=== PATIENT | female | born 1975 | race Caucasian/White ===

== ENCOUNTER 2021-08-17 11:34 | Emergency (ER) | payer OTHER, SELFPAY ==
[2021-08-17 11:36] VITALS: BP 129/84; PULSE 86; RESP 16; TEMP 36.1; O2SAT 99
--- NOTE | 2021-08-17 12:21 | ED.GENADULT ---
HPI - General Adult General Chief complaint: Weakness Stated complaint: headache Time Seen by Provider: 08/17/21 11:51 History of Present Illness HPI narrative: 45-year-old female presenting to the emergency department for evaluation of multiple complaints including sore throat, ear pressure, sinus pressure and generalized weakness and tiredness that is been ongoing for approximately 1 week. Patient is not vaccinated to COVID but has no known COVID exposure. Patient also does report loss of taste as well. Patient has been taking ibuprofen for symptom control. Over the course of the last few days patient states she has also developed some nausea and some stomach irritation. Patient reports she has been taking ibuprofen for a headache. Related Data Allergies Allergy/AdvReac Type Severity Reaction Status Date / Time sulfamethizole Allergy Intermediate nausea and Verified 10/15/16 11:43 hives azithromycin Allergy Unknown abd pain Verified 02/08/17 11:56 trimethoprim Allergy Unknown Verified 02/08/17 11:18 Review of Systems Review of Systems: CONSTITUTIONAL: Subjective fever EYES: Denies visual changes, redness, or discharge. ENT: See HPI CARDIOVASCULAR: Denies chest pain, palpitations, or edema. RESPIRATORY: Denies cough or dyspnea. GASTROINTESTINAL: Nausea and left upper quadrant stomach irritation GENITOURINARY: Denies dysuria or hematuria. SKIN: Denies rash or itching. MUSCULOSKELETAL: Denies back pain, joint pain, or myalgia. NEUROLOGIC: Headache but denies any associated numbness or weakness. [facility] Surgical History Surgical History (Updated 05/13/21 @ 13:53 by Lisa Sexton MA) H/O colposcopy with cervical biopsy 02/21/2020 History of gynecological procedure Mirena Iud insertion - 2007 Mirena Iud removal - 07/17/2012 Family History Family History (Updated 02/08/17 @ 11:22 by DOCTOR UNKNOWN) Sibling Hypertension Mother Family history of malignant neoplasm of ovary Social History Social History Smoking status: Never smoker Second hand tobacco smoke exposure: Yes Alcohol intake: current Exam Narrative: APPEARANCE: Well appearing, no pain, no distress, well-nourished. HEAD: normocephalic, atraumatic. Frontal and maxillary sinus tenderness to palpation. EYES: PERRLA/EOMI, conjunctivae clear. NOSE: Normal no drainage EARS:TMS clear with good light reflex. THROAT: Pharynx clear, no exudate. NECK: Supple. No adenopathy, no masses. RESPIRATORY: Airway patent, respirations nonlabored. Clear to auscultation bilaterally, no rales, rhonchi, wheezing. CARDIOVASCULAR: Regular rate and rhythm without murmurs rubs or gallops. ABDOMINAL: Soft nondistended, some left upper quadrant tenderness to palpation. MUSCULOSKELETAL: Moves all extremities. Strength/ROM intact, No edema, No calf tenderness. NEURO: Alert. Cranial nerves II through XII intact. Grossly intact. No meningeal signs SKIN: Warm, dry. Normal Color Course Course Emergency Course: Patient was positive for COVID. Patient was given Protonix for gastritis symptoms. Patient and family were updated on the diagnosis and treatment plan for home. She was also encouraged on reasons to return to the emergency department and on importance of close follow-up with her primary care physicians. All questions and concerns were addressed. Vital Signs Vital signs: Vital Signs Temperature 97.0 F L 08/17/21 11:36 Pulse Rate 86 08/17/21 11:36 Respiratory Rate 16 08/17/21 11:36 Blood Pressure 129/84 08/17/21 11:36 Pulse Oximetry 99 08/17/21 11:36 Oxygen Delivery Room Air 08/17/21 11:36 Temperature 97.0 F L 08/17/21 11:36 Pulse Rate 74 08/17/21 14:11 Respiratory Rate 17 08/17/21 14:11 Blood Pressure 118/70 08/17/21 14:11 Pulse Oximetry 99 08/17/21 14:11 Oxygen Delivery Room Air 08/17/21 11:36 Medical Decision Making Vital Signs Vital Signs: Vital Signs Temperature 97.0 F L 08/17/21 11:36 Pulse
[2021-08-17] MEDS: PANTOPRAZOLE 40 MG TABLET PO (12:37)
[2021-08-17] MEDS: ONDANSETRON HCL ODT 4 MG TABLET PO (12:38)
[2021-08-17 13:24] LABS: Influenza A QL RT-PCR Negative (Negative); Influenza B QL RT-PCR Negative (Negative); SARS-CoV-2 RNA PCR Positive
[2021-08-17] MEDS: KETOROLAC 30 MG/ML VIAL (*BKC) IM (14:07)
[2021-08-17 14:11] VITALS: BP 118/70; PULSE 74; RESP 17; O2SAT 99
== END 2021-08-17 14:13 | disposition home or self-care (01) ==
PROVIDERS: Emergency Provider Emergency Medicine
DX: U07.1 COVID-19 (principal); Z28.310 Unvaccinated for COVID-19
CPT/HCPCS: 87081; 87502; 87880; 96372; 99283; A9270; C9803; J1885; U0003; U0005

== ENCOUNTER 2024-03-01 16:24 | Outpatient (CLI) | payer OTHER, SELFPAY ==
--- NOTE | ~2024-03-01 | MM_ITS ---
EXAMINATION: MM screening [facility] BI w mykel HISTORY: Screening TECHNIQUE: Craniocaudal and mediolateral oblique 3-D tomosynthesis images were obtained and synthetic 2-D images were generated. CAD analysis was submitted and interpreted. COMPARISON: 02/27/2015 BREAST PARENCHYMAL COMPOSITION: Dense: The breasts are extremely dense, which lowers the sensitivity of mammography. FINDINGS: The left breast is stable without evidence for malignancy. There is a new mass in the upper outer quadrant of the right breast, middle third. IMPRESSION: 1. New right breast mass, upper outer quadrant, middle third. 2. Additional mammographic views and possible breast ultrasound are recommended. BI-RADS Category 0: Incomplete: Needs additional imaging evaluation. Reviewed, dictated and finalized at location B. GE PLANT OPERATOR IMPRESSION: 1. New right breast mass, upper outer quadrant, middle third. 2. Additional mammographic views and possible breast ultrasound are recommended . BI-RADS Category 0: Incomplete: Needs additional imaging evaluation.
== END 2024-03-01 16:25 | disposition home or self-care (01) ==
PROVIDERS: Visit Provider Obstetrics & Gynecology
DX: Z12.31 Encounter for screening mammogram for malignant neoplasm of breast (principal); N63.11 Unspecified lump in the right breast, upper outer quadrant
CPT/HCPCS: 77063; 77067

== ENCOUNTER 2024-03-22 13:26 | Outpatient (CLI) | payer OTHER, SELFPAY ==
--- NOTE | ~2024-03-22 | MMUS_ITS ---
EXAMINATION: MM diagnostic nat RT w mykel, US breast RT limited HISTORY: Right breast mass TECHNIQUE: Additional 3-D tomosynthesis images of the right breast were performed and synthetic 2-D i mages were generated. CAD analysis was submitted and interpreted. High resolution limited right breas t ultrasound was performed. COMPARISON: 03/01/2024 BREAST PARENCHYMAL COMPOSITION:Dense: The breasts are extremely dense, which lowers the sensitivity o f mammography. FINDINGS: MAMMOGRAPHIC FINDINGS: Questionable 7 mm persistent low-density mass at the upper, outer right breast. No suspicious appeari ng mass or distortion. ULTRASOUND: In the upper, outer right breast, there are 3 simple cysts identified. Largest measures 8 x 7 x 4 mm at the 10:00 position, 1 cm from the nipple. Additional 8 x 7 x 5 mm cyst present at the 11:00 positi on, 2 cm from the nipple. Additional 5 mm cyst present at the 9:00 position near the nipple. IMPRESSION: No evidence for malignancy. Subcentimeter cysts in the upper, outer right breast, as detailed above. BI-RADS Category 2: Benign finding(s). Reviewed, dictated and finalized at location M. CTOR [place] IMPRESSION: No evidence for malignancy. Subcentimeter cysts in the upper, outer right [address], as detailed above. BI-RADS Category 2: Benign finding(s).
== END 2024-03-22 13:27 | disposition home or self-care (01) ==
PROVIDERS: Visit Provider Obstetrics & Gynecology
DX: N60.11 Diffuse cystic mastopathy of right breast (principal); R92.8 Other abnormal and inconclusive findings on diagnostic imaging of breast
CPT/HCPCS: 76642; 77061; 77065; G0279

== ENCOUNTER 2024-05-02 16:57 | Emergency (ER) | payer OTHER, SELFPAY ==
--- NOTE | ~2024-05-02 | US_ITS ---
EXAM: PELVIC ULTRASOUND HISTORY: vaginal hemorrhage COMPARISON: . None FINDINGS: UTERUS: 8.3 x 4.2 x 5.4 cm. Coarse echogenicity identified throughout the uterus, a nonspecific finding. No linear striations are identified to suggest adenomyosis. The endometrial complex measures 4 mm. Multiple cysts within the cervix, of varying sizes the largest measuring 14 x 18 x 16 mm. RIGHT OVARY: The right ovary is unremarkable in echogenicity and size measuring 4.4 x 2.2 x 1.9 cm. Dopplerable flow is identified. LEFT OVARY: The left ovary is unremarkable in size measuring 3.1 x 2.8 x 3.0 cm Dopplerable flow is identified. Within the left ovary, is a well-circumscribed focus of mixed echogen icity. It contains lacelike reticular echoes without a fluid/fluid level. No flow on Doppler interrogation w ithin this area. Circumferential blood flow in the wall is noted. This finding is most consistent wit h a hemorrhagic cyst for which follow-up with ultrasound in 6-8 weeks is recommended. An additional focus of abnormal echogenicity is identified within the left ovary measuring 9 x 17 x 1 0 mm demonstrating increased echogenicity and posterior acoustic shadowing suggesting calcification. Surgical consultation is recommended. No free fluid is identified within the pelvis. IMPRESSION: Findings within the left ovary for which a hemorrhagic cyst is suspected for which ultrasound follow- up in 6-8 weeks is recommended. An additional smaller area of dense calcifications is also noted for which PHYSICIAN NEONATOLOGY surgical consultation is recommended. Of note, a plain radiograph of the pelvis was performed in 2011 as part of a lumbar spine evaluation which did NOT demonstrate any calcifications within the left hemipelvis. Multiple nabothian cysts within the cervix, as detailed above. Reviewed, dictated and finalized at location A. OOD AND SERVICE MEAT MANAGER IMPRESSION: Findings within the left ovary for which a hemorrhagic cyst is suspected for [facility] ultrasound follow-up in 6-8 weeks is recommended. An additional smaller area of dense calcifications is also noted for which PHYSICIAN NEONATOLOGY surgical consultation is recommended. Of note, a plain radiograph of the pelvis was performed in 2011 as part of a sina mbar spine evaluation which did NOT demonstrate any calcifications within the l eft hemipelvis. Multiple nabothian cysts within the cervix, as detailed above.
[2024-05-02 16:59] VITALS: BP 144/95; PULSE 83; RESP 16; TEMP 36.5; O2SAT 100
--- OUTSIDE RECORDS SUMMARY | 2024-05-02 16:59 | XMS_ITS | Referral Summary ---
Author Organization [email or web address] Address [address] [place] [address] Care Team Providers Care Microsoft Developer Name Role Phone Emmy Dallas MD Primary Care Provider Source Comments [email or web address],non-owned Affiliates and Associated Physician Practices is amultiple site organization consisting of ambulatory clinics and hospital sitesin [place], [place], [place] and [place]. This disclosure is being madepursuant to the Care Everywhere program and may not contain all information available regarding this patient. Last updated 17.[email or web address] Allergies No known active allergies Medications * Be aware that medications may not be up to date on this document. Alwaysverify current medications with the patient. Medication Sig Dispensed Refills Start Date End Date Status acyclovir (ZOVIRAX) 200 MG capsule Take 200 mg by mouth 5 times daily while awake Active albuterol HFA (VENTOLIN HFA) 108 (90 BASE) MCG/ACT inhalerIndications:Ac pushpa bronchitis, unspecified organism Inhale 2 puffs by mouth every 6 hours as needed for Wheezing or Cough 1 Inhaler 01/24/2017 Active fluticasone propionate (FLONASE) 50 MCG/ACT nasal sprayIndications:Acut e sinusitis, recurrence not specified, unspecified location D[place] 2 sprays into each nostril once daily 1 bottles 01/24/2017 Active Social History Tobacco Use Types Packs/Day Years Used Date Smoking Tobacco: Never Assessed Sex and Gender Information Value Date Recorded Sex Assigned at Not on file Gender Identity Not on file Sexual Orientation Not on file Last Filed Vital Signs Vital Sign Reading Time Taken Comments Blood Pressure 118/70 01/24/2017 11:41 AM CRANE SERVICE TECHNICIAN Pulse 88 01/24/2017 11:41 AM CRANE SERVICE TECHNICIAN Temperature 37.3 C (99.1 F) 01/24/2017 11:41 AM CRANE SERVICE TECHNICIAN Respiratory Rate 17 01/24/2017 11:41 AM CRANE SERVICE TECHNICIAN Oxygen Saturation 99% 01/24/2017 11:41 AM CRANE SERVICE TECHNICIAN Inhaled Oxygen Concentration - - Weight 49.9 kg (110 lb) 01/24/2017 11:41 AM CRANE SERVICE TECHNICIAN Height 160 cm (5' 3 ) 01/24/2017 11:41 AM CRANE SERVICE TECHNICIAN Body Mass Index 19.49 01/24/2017 11:41 AM CRANE SERVICE TECHNICIAN Plan of Treatment Not on file Care Teams Microsoft Developer Relationship Specialty Start Date End Date Emmy Dallas MD PCP - General Family Medicine 03/24/16
--- OUTSIDE RECORDS SUMMARY | 2024-05-02 16:59 | XMS_ITS | Clinical Summary ---
Author Organization [facility] Address [address] [place] [address] Care Team Providers Care Loan Auditor Name Role Phone Emmy aDllas MD Primary Care Provider [phone] Source Comments [facility],non-owned Affiliates and Associated Physician Practices is amultiple site organization consisting of ambulatory clinics and hospital sitesin [place], [place], [place] and [place]. This disclosure is being madepursuant to the Care Everywhere program and may not contain all information available regarding this patient. Last updated 17.[facility] Allergies No known active allergies Medications * [...] e sinusitis, recurrence not specified, unspecified location [place] 2 sprays into each nostril once daily 1 bottles 01/24/2017 Active Social History Tobacco Use Types Packs/Day Years Used Date Smoking Tobacco: Never Assessed Sex and Gender Information Value Date Recorded Sex Assigned at Not on file Gender Identity Not on file Sexual Orientation Not on file Last Filed Vital Signs Vital Sign Reading Time Taken Comments Blood Pressure 118/70 01/24/2017 11:41 AM FUR REPAIRER Pulse 88 01/24/2017 11:41 AM FUR REPAIRER Temperature 37.3 C (99.1 F) 01/24/2017 11:41 AM FUR REPAIRER Respiratory Rate 17 01/24/2017 11:41 AM FUR REPAIRER Oxygen Saturation 99% 01/24/2017 11:41 AM FUR REPAIRER Inhaled Oxygen Concentration - - Weight 49.9 kg (110 lb) 01/24/2017 11:41 AM FUR REPAIRER Height 160 cm (5' 3 ) 01/24/2017 11:41 AM FUR REPAIRER Body Mass Index 19.49 01/24/2017 11:41 AM FUR REPAIRER Plan of Treatment Health Maintenance Due Date Last Done Comments COLOGUARD (AGES 45-75) - COL ON CA SCREENING 1976 COLON MONITORING 1976 COLONOSCOPY - COLON CA SCREENING 1976 CT COLONOGRAPHY - COLON CA SCREENING 1976 Colorectal Cancer Screening 1976 FIT - COLON CA SCREENING 1976 FLEX SIG - COLON CA SCREENING 1976 LIPID TESTING 1976 MAMMOGRAM 1976 PAP SMEAR 1976 HIV SCREENING 10/10/1991 HEPATITIS C SCREENING 10/05/1994 DTAP/TDAP/TD VACCINES (1 - Tdap) 10/10/1995 HEPATITIS B VACCINE (1 of 3 - 19+ 3-dose series) 10/10/1995 COVID-19 VACCINE ( - 2023-2 5 season) 2023 INFLUENZA VACCINE (#1) 2023 DEPRESSION SCREENING 03/21/2024 ZOSTER VACCINE (1 of 2) 2026 HIB VACCINE Aged Out No longer eligi ble based on patient's age to complete this topic HPV VACCINE Aged Out No longer eligi ble based on patient's age to complete this topic MENINGOCOCCAL (Group B) VACCINE Aged Out No longer eligible based on patient's age to complete this topic MENINGOCOCCAL VACCINE Aged Out No abdon puja eligible based on patient's age to complete this topic PNEUMOCOCCAL VACCINE Aged Out No long er eligible based on patient's age to complete this topic Care Teams Loan Auditor Relationship Specialty Start Date End Date Emmy Dallas MD PCP - General Family Medicine 03/24/16
--- OUTSIDE RECORDS SUMMARY | 2024-05-02 16:59 | XMS_ITS | Patient Health Summary ---
Author Organization [facility] Address [address] [place] [address] Care Team Providers Care Refinisher Name Role Phone Emmy Dallas MD Primary Care Provider [phone] Note from [facility],non-owned Affiliates and Associated Physician Practices is amultiple site organization consisting of ambulatory clinics and hospital sitesin [place], [place], [place] and [place]. This disclosure is being madepursuant to the Care Everywhere program and may not contain all information available regarding this patient. Last updated 17.[facility] Allergies No known active allergies Medications * Be aware that medications may not be up to date on this document. Alwaysverify current medications with the patient. * acyclovir (ZOVIRAX) 200 MG capsule Take 200 mg by mouth 5 times daily while awake * albuterol HFA (VENTOLIN HFA) 108 (90 BASE) MCG/ACT inhaler(Started 01/24/2017) Inhale 2 puffs by mouth every 6 hours as needed for Wheezing or Cough * fluticasone propionate (FLONASE) 50 MCG/ACT nasal spray(Started 01/24/2017) [place] 2 sprays into each nostril once daily Social History Tobacco Use Types Packs/Day Years Used Date Smoking Tobacco: Never Assessed Sex and Gender Information Value Date Recorded Sex Assigned at Not on file Gender Identity Not on file Sexual Orientation Not on file Last Filed Vital Signs Vital Sign Reading Time Taken Comments Blood Pressure 118/70 01/24/2017 11:41 AM CHEMICAL TREATMENT OPERATOR Pulse 88 01/24/2017 11:41 AM CHEMICAL TREATMENT OPERATOR Temperature 37.3 C (99.1 F) 01/24/2017 11:41 AM CHEMICAL TREATMENT OPERATOR Respiratory Rate 17 01/24/2017 11:41 AM CHEMICAL TREATMENT OPERATOR Oxygen Saturation 99% 01/24/2017 11:41 AM CHEMICAL TREATMENT OPERATOR Inhaled Oxygen Concentration - - Weight 49.9 kg (110 lb) 01/24/2017 11:41 AM CHEMICAL TREATMENT OPERATOR Height 160 cm (5' 3 ) 01/24/2017 11:41 AM CHEMICAL TREATMENT OPERATOR Body Mass Index 19.49 01/24/2017 11:41 AM CHEMICAL TREATMENT OPERATOR Care Teams Refinisher Relationship Specialty Start Date End Date Emmy Dallas MD PCP - General Family Medicine 03/24/16
--- NOTE | 2024-05-02 18:21 | ED.FEMALEGU ---
HPI - Female Genitourinary General Chief complaint: Vaginal Bleeding <Ioana Garcia PA-C - Last Filed: 05/03/24 17:03> Stated complaint: vaginal bleeding <Ioana Garcia PA-C - Last Filed: 05/03/24 17:03> Time Seen by Provider: 05/02/24 17:09 <Ioana Garcia PA-C - Last Filed: 05/03/24 17:03> Focused HPI: Patient is a 48 y/o female who presents to the ED with c/o abnormal vaginal bleeding. Patient reports she started her normal cycle started on Tuesday. She typically has heavy cycles but states the bleeding was even heavier than usual. States typically bleeding will decreased by 3rd day of cycle, but the heavy bleeding has since persisted. States any time she stands up, she feels a gush of blood. Has been going through a pad and tampon per hour. Contacted her OBGYN and was seen in the office today. Had a pelvic exam performed and was referred to the ED for further evaluation. They discussed possible D&C. Reports dizziness/lightheadedness since yesterday. Also reports increased lower abdominal cramping, nausea. Denies vomiting, fevers. GENERAL: Well-appearing, thin, and in no acute distress. HEAD: Normocephalic, atraumatic. CHEST: Clear to auscultation. ?No respiratory distress. HEART: Regular rate and rhythm.? NEURO: ?Alert and oriented x3. Patient screened in triage and initial orders placed.? ?Additional care and disposition to be based upon?diagnostic testing and treatment. <Ioana Garcia PA-C - Last Filed: 05/03/24 17:03> Source: patient <Ioana Garcia PA-C - Last Filed: 05/03/24 17:03> Mode of arrival: ambulatory <Ioana Garcia PA-C - Last Filed: 05/03/24 17:03> Limitations: no limitations <Ioana Garcia PA-C - Last Filed: 05/03/24 17:03> History of Present Illness HPI Narrative: per hpi <Yoko Stevenson MD - Last Filed: 05/03/24 17:26> Related Data Home medications: Home Medications ?Medication ?Instructions ?Recorded ?Confirmed ?Last Taken ?Type valacyclovir 500 mg tablet mg PO 12/07/23 05/03/24 Unknown History <Ioana Garcia PA-C - Last Filed: 05/03/24 17:03> Allergies/Adverse reactions: Allergies Allergy/AdvReac Type Severity Reaction Status Date / Time sulfamethizole Allergy Intermediate nausea and Verified 05/03/24 14:09 hives azithromycin Allergy Unknown abd pain Verified 05/03/24 14:09 trimethoprim Allergy Unknown Diarrhea Verified 05/03/24 14:09 <Ioana Garcia PA-C - Last Filed: 05/03/24 17:03> Review of Systems Review of Systems: All systems reviewed & are unremarkable except as noted in HPI and below <Yoko Stevenson MD - Last Filed: 05/03/24 17:26> PMFSH Past Medical History Medical History: Medical History Breast mass, right <Ioana Garcia PA-C - Last Filed: 05/03/24 17:03> Surgical History Surgical History: Surgical History H/O colposcopy with cervical biopsy 02/21/2020 History of gynecological procedure Mirena Iud insertion - 2007 Mirena Iud removal - 07/17/2012 <NIDHI Zuniga Last Filed: 05/03/24 17:03> Family History Family History: Family History Sibling Hypertension Mother Family history of malignant neoplasm of ovary <Ioana Garcia PA-C - Last Filed: 05/03/24 17:03> Social History Social History: Social History Smoking packs per day: 0.5 Smoking cigarettes per day: 10.0 Years smoked: 10 Smoking pack-years: 5.00 Smoking status: Current some day smoker Tobacco type: cigarettes Second hand tobacco smoke exposure: Yes Alcohol intake: current Substance use: never Substance use type: does not use Lack of Transportation: No Lack of Food: Never True Current Housing: I Have Housing Concerned About Future Housing: No Difficulty Paying Gas/Electric Bills: No Difficulty Paying for Meds: No Currently Unemployed: No Education: High School Diploma/GED Difficulty w/ Childcare or Family Care: No Living arrangements: with family Occupation/Education: occupation Gender identity (if verbalized by the patient): Female Sexual Orientation (if Verbalized by the Patient): Straight or Heterosexual <Ioana Garcia PA-C - Last Filed: 05/03/24 17:03> Exam Narrative: EXAMINATION OF ORGAN SYSTEMS/BODY AREAS: Constitutional: Vital signs per nursing GENERAL:[No acute distress, non-toxic appearing.] HEAD: Normal with no signs of head trauma. EYES: EOMI, conjunctiva normal ENT: Hearing grossly intact LUNGS: Nonlabored breathing. HEART: [Regular rate and rhythm] ABD: [Soft], [nontender to palpation] EXT: Normal range of motion SKIN: [No rashes or lesions.] NEURO: [Alert and oriented x 3. No gross focal sensory or strength deficits.] PSYCH: Normal affect <Yoko Stevenson MD - Last Filed: 05/03/24 17:26> Course Vital Signs Vital signs: Vital Signs Temperature 97.7 F 05/02/24 16:59 Pulse Rate 83 05/02/24 16:59 Respiratory Rate 16 05/02/24 16:59 Blood Pressure 144/95 H 05/02/24 16:59 Pulse Oximetry 100 05/02/24 16:59 Oxygen Delivery Room Air 05/02/24 16:59 Temperature 97.7 F 05/02/24 16:59 Pulse Rate 81 05/02/24 19:21 Respiratory Rate 20 05/02/24 19:21 Blood Pressure 144/95 H 05/02/24 16:59 Pulse Oximetry 100 05/02/24 19:21 Oxygen Delivery Room Air 05/02/24 16:59 <Ioana Garcia PA-C - Last Filed: 05/03/24 17:03> Vital Signs Temperature 97.7 F 05/02/24 16:59 Pulse Rate 83 05/02/24 16:59 Respiratory Rate 16 05/02/24 16:59 Blood Pressure 144/95 H 05/02/24 16:59 Pulse Oximetry 100 05/02/24 16:59 Oxygen Delivery Room Air 05/02/24 16:59 Temperature 97.7 F 05/02/24 16:59 Pulse Rate 81 05/02/24 19:21 Respiratory Rate 20 05/02/24 19:21 Blood Pressure 144/95 H 05/02/24 16:59 Pulse Oximetry 100 05/02/24 19:21 Oxygen Delivery Room Air 05/02/24 16:59 <Yoko Stevenson MD - Last Filed: 05/03/24 17:26> MDM - Female Genitourinary MDM Narrative Medical decision making narrative: MSE by BARTOLO in triage. <Ioana Garcia PA-C - Last Filed: 05/03/24 17:03> MSE by BARTOLO in triage. Labs and US reassuring, d/w OBGYN will start provera and close f/u with return precautions, stable for dc. Pt/family agreeable. DC in NAD <Yoko Stevenson MD - Last Filed: 05/03/24 17:26> Lab Data Result diagrams: 05/02/24 18:27 05/02/24 18:27 <Ioana Garcia PA-C - Last Filed: 05/03/24 17:03> Labs: Lab Results 05/02/24 Range/Units 18:27 WBC 10.9 H (4.5-10.0) K/mm3 RBC 5.08 (4.2-5.4) M/mm3 Hgb 15.5 H (12.0-15.0) g/dL Hct 48.3 H (37.0-47.0) % MCV 95.1 (80-100) fl MCH 30.5 (26-34) pg MCHC 32.1 (32-36) g/dl RDW 13.7 (11.5-14.5) % Plt Count 299 (150-375) k/mm3 MPV 10.3 (7.4-10.4) fl Immature Gran % (Auto) 0.6 H (0-0.5) % Neut % (Auto) 68.1 (45.5-73.1) % Lymph % (Auto) 23.4 (18.3-44.2) % [place] % (Auto) 6.7 (2.6-8.5) % Eos % (Auto) 0.5 (0-4.4) % Baso % (Auto) 0.7 (0.2-1.2) % Lymph # (Auto) 2.56 (0.9-3.2) K/mm3 [place] # (Auto) 0.7 H (0.1-0.6) K/mm3 Eos # (Auto) 0.1 (0-0.3) K/mm3 Baso # (Auto) 0.1 (0.0-0.1) K/mm3 Abs Immat Gran (auto) 0.07 H (0.00-0.031) K/mm3 Absolute Neuts (auto) 7.4 H (1.3-6.7) K/mm3 Absolute Nucleated RBC 0.000 (0.0-0.012) K/mm3 Nucleated RBC % 0.0 (0.0-0.2) % PT 12.7 (11.1-14.7) Seconds INR 0.9 APTT 30.6 (22.3-36.8) Seconds Sodium 142 (137-145) mmol/L Potassium 4.2 (3.4-5.0) mmol/L Chloride 103 (98-107) mmol/L Carbon Dioxide 28 (22-30) mmol/L Anion Gap 11 (4-12) mmol/L BUN 11 (7-17) mg/dL Creatinine 0.68 L (0.7-1.0) mg/dL Estim Creat Clear Calc 71 ml/min Estimated GFR > 60 (59 - ) Glucose 93 (65-110) mg/dL Calcium 10.1 (8.4-10.2) mg/dL Blood Type B Positive Antibody Screen Negative <Ioana Garcia PA-C - Last Filed: 05/03/24 17:03> Lab Results 05/02/24 Range/Units 18:27 WBC 10.9 H (4.5-10.0) K/mm3 RBC 5.08 (4.2-5.4) M/mm3 Hgb 15.5 H (12.0-15.0) g/dL Hct 48.3 H (37.0-47.0) % MCV 95.1 (80-100) fl MCH 30.5 (26-34) pg MCHC 32.1 (32-36) g/dl RDW 13.7 (11.5-14.5) % Plt Count 299 (150-375) k/mm3 MPV 10.3 (7.4-10.4) fl Immature Gran % (Auto) 0.6 H (0-0.5) % Neut % (Auto) 68.1 (45.5-73.1) % Lymph % (Auto) 23.4 (18.3-44.2) % [place] % (Auto) 6.7 (2.6-8.5) % Eos % (Auto) 0.5 (0-4.4) % Baso % (Auto) 0.7 (0.2-1.2) % Lymph # (Auto) 2.56 (0.9-3.2) K/mm3 [place] # (Auto) 0.7 H (0.1-0.6) K/mm3 Eos # (Auto) 0.1 (0-0.3) K/mm3 Baso # (Auto) 0.1 (0.0-0.1) K/mm3 Abs Immat Gran (auto) 0.07 H (0.00-0.031) K/mm3 Absolute Neuts (auto) 7.4 H (1.3-6.7) K/mm3 Absolute Nucleated RBC 0.000 (0.0-0.012) K/mm3 Nucleated RBC % 0.0 (0.0-0.2) % PT 12.7 (11.1-14.7) Seconds INR 0.9 APTT 30.6 (22.3-36.8) Seconds Sodium 142 (137-145) mmol/L Potassium 4.2 (3.4-5.0) mmol/L Chloride 103 (98-107) mmol/L Carbon Dioxide 28 (22-30) mmol/L Anion Gap 11 (4-12) mmol/L BUN 11 (7-17) mg/dL Creatinine 0.68 L (0.7-1.0) mg/dL Estim Creat Clear Calc 71 ml/min Estimated GFR > 60 (59 - ) Glucose 93 (65-110) mg/dL Calcium 10.1 (8.4-10.2) mg/dL Blood Type B Positive Antibody Screen Negative <Yoko Stevenson MD - Last Filed: 05/03/24 17:26> Discharge Plan Discharge Clinical Impression: Vaginal bleeding <Ioana Garcia PA-C - Last Filed: 05/03/24 17:03> Patient Disposition: Home, Self-Care <Ioana Garcia PA-C - Last Filed: 05/03/24 17:03> Condition: Stable <NIDHI Zuniga Last Filed: 05/03/24 17:03> Instructions: Menorrhagia (ED) <Ioana Garcia PA-C - Last Filed: 05/03/24 17:03> Additional Instructions: Please start the progestin pills and follow-up with your OBGYN in the next 2-3 days, if your bleeding worsens or if you start having any concerning symptoms such as shortness of breath or lightheadedness, please come back to the emergency room immediately. <Ioana Garcia PA-C - Last Filed: 05/03/24 17:03> Patient Language: Bruneian <Ioana Garcia PA-C - Last Filed: 05/03/24 17:03> Prescriptions: New medroxyprogesterone [Provera] 10 mg tablet 20 mg PO DAILY 10 Days Qty: 20 0RF No Action medroxyprogesterone [Provera] 10 mg tablet 10 mg PO BID Qty: 60 0RF valacyclovir 500 mg tablet PO <Ioana Garcia PA-C - Last Filed: 05/03/24 17:03> Follow-up/Referrals: Marianela Graham MD [Physician] - 2 Days PHYSICIAN NOT ON STAFF,NONSTAFF [Primary Care Provider] - <NIDHI Zuniga Last Filed: 05/03/24 17:03>
[2024-05-02 18:34] LABS: Basophils Absolute Auto 0.1 K/mm3 (0.0-0.1); Basophils Percent Auto 0.7 % (0.2-1.2); Eosinophils Absolute Auto 0.1 K/mm3 (0-0.3); Eosinophils Percent Auto 0.5 % (0-4.4); Hematocrit 48.3 % (37.0-47.0); Hemoglobin 15.5 g/dL (12.0-15.0); Immature Granulocyte Absolute 0.07 K/mm3 (0.00-0.031); Immature Granulocyte Percent A 0.6 % (0-0.5); Lymphocytes Absolute Auto 2.56 K/mm3 (0.9-3.2); Lymphocytes Percent Auto 23.4 % (18.3-44.2); Mean Corpuscular HGB Conc 32.1 g/dl (32-36); Mean Corpuscular Hemoglobin 30.5 pg (26-34); Mean Corpuscular Volume 95.1 fl (80-100); Mean Platelet Volume 10.3 fl (7.4-10.4); Monocytes Absolute Auto 0.7 K/mm3 (0.1-0.6); Monocytes Percent Auto 6.7 % (2.6-8.5); Neutrophils Absolute Auto 7.4 K/mm3 (1.3-6.7); Neutrophils Percent Auto 68.1 % (45.5-73.1); Platelet Count Result 299 k/mm3 (150-375); Red Blood Count 5.08 M/mm3 (4.2-5.4); Red Cell Distribution Width 13.7 % (11.5-14.5); White Blood Count 10.9 K/mm3 (4.5-10.0)
[2024-05-02 18:42] LABS: Anion Gap 11 mmol/L (4-12); Blood Urea Nitrogen 11 mg/dL (7-17); Calcium 10.1 mg/dL (8.4-10.2); Carbon Dioxide 28 mmol/L (22-30); Chloride 103 mmol/L (98-107); Estimated CRCL calculation 71 ml/min; Estimated Glomerular Filt Rate > 60; Glucose 93 mg/dL (65-110); Potassium 4.2 mmol/L (3.4-5.0); Sodium 142 mmol/L (137-145)
[2024-05-02 18:51] LABS: INR 0.9; Prothrombin Time 12.7 Seconds (11.1-14.7)
[2024-05-02 18:52] LABS: Partial Thromboplastin Time 30.6 Seconds (22.3-36.8)
[2024-05-02] MEDS: SODIUM CHLORIDE 0.9% IV 1,000 ML 999 ML IV CONT (19:08)
[2024-05-02] MEDS: ONDANSETRON INJ 4 MG/2 ML VIAL IV PUSH (19:09)
[2024-05-02] MEDS: TRANEXAMIC ACID 1,000 MG/10 ML AMPUL 500 MG IV PUSH (19:11)
--- OUTSIDE RECORDS SUMMARY | 2024-05-02 19:15 | XMS_ITS | Patient Health Summary ---
Author Organization [facility] Address [address] [place] [address] Care Team Providers Care Fuel Cell Technician Name Role Phone Emmy Dallas MD Primary Care Provider [phone] [facility],non-owned Affiliates and Associated Physician Practices is amultiple site organization consisting of ambulatory clinics and hospital sitesin [place], [place], [place] and [place]. This disclosure is being madepursuant to the Care Everywhere program and may not contain all information available regarding this patient. Last updated 17.[facility] Allergies No known active allergies Medications [...] propionate (FLONASE) 50 MCG/ACT nasal spray(Started 01/24/2017) [place] 2 sprays into each nostril once daily Social History Tobacco Use Types Packs/Day Years Used Date Smoking Tobacco: Never Assessed Sex and Gender Information Value Date Recorded Sex Assigned at Not on file Gender Identity Not on file Sexual Orientation Not on file Last Filed Vital Signs Vital Sign Reading Time Taken Comments Blood Pressure 118/70 01/24/2017 11:41 AM DRESSAGE JUDGE Pulse 88 01/24/2017 11:41 AM DRESSAGE JUDGE Temperature 37.3 C (99.1 F) 01/24/2017 11:41 AM DRESSAGE JUDGE Respiratory Rate 17 01/24/2017 11:41 AM DRESSAGE JUDGE Oxygen Saturation 99% 01/24/2017 11:41 AM DRESSAGE JUDGE Inhaled Oxygen Concentration - - Weight 49.9 kg (110 lb) 01/24/2017 11:41 AM DRESSAGE JUDGE Height 160 cm (5' 3 ) 01/24/2017 11:41 AM DRESSAGE JUDGE Body Mass Index 19.49 01/24/2017 11:41 AM DRESSAGE JUDGE Care Teams Fuel Cell Technician Relationship Specialty Start Date End Date Emmy Dallas MD PCP - General Family Medicine 03/24/16
--- OUTSIDE RECORDS SUMMARY | 2024-05-02 19:15 | XMS_ITS | Clinical Summary ---
Author Organization [facility] Address [address] [place] [address] Care Team Providers Care Oyster Shucker Name Role Phone Emmy Dallas MD Primary Care Provider [phone] Source Comments [facility],non-owned Affiliates and Associated Physician Practices is amultiple site organization consisting of ambulatory clinics and hospital sitesin [place], [place], [place] and [place]. This disclosure is being madepursuant to the Care Everywhere program and may not contain all information available regarding this patient. Last updated 17.[facility] Allergies No known active allergies Medications * [...] e sinusitis, recurrence not specified, unspecified location [place] 2 sprays into each nostril once daily 1 bottles 01/24/2017 Active Social History Tobacco Use Types Packs/Day Years Used Date Smoking Tobacco: Never Assessed Sex and Gender Information Value Date Recorded Sex Assigned at Not on file Gender Identity Not on file Sexual Orientation Not on file Last Filed Vital Signs Vital Sign Reading Time Taken Comments Blood Pressure 118/70 01/24/2017 11:41 AM TIRE DUSTER Pulse 88 01/24/2017 11:41 AM TIRE DUSTER Temperature 37.3 C (99.1 F) 01/24/2017 11:41 AM TIRE DUSTER Respiratory Rate 17 01/24/2017 11:41 AM TIRE DUSTER Oxygen Saturation 99% 01/24/2017 11:41 AM TIRE DUSTER Inhaled Oxygen Concentration - - Weight 49.9 kg (110 lb) 01/24/2017 11:41 AM TIRE DUSTER Height 160 cm (5' 3 ) 01/24/2017 11:41 AM TIRE DUSTER Body Mass Index 19.49 01/24/2017 11:41 AM TIRE DUSTER Plan of Treatment Health Maintenance Due Date [...] age to complete this topic Care Teams Oyster Shucker Relationship Specialty Start Date End Date Emmy Dallas MD PCP - General Family Medicine 03/24/16
--- OUTSIDE RECORDS SUMMARY | 2024-05-02 19:15 | XMS_ITS | Referral Summary ---
Author Organization [facility] Address [address] [place] [address] Care Team Providers Care Gas Furnace Installer Name Role Phone Emmy Dallas MD Primary Care Provider [phone] Source Comments [facility],non-owned Affiliates and Associated Physician Practices is amultiple site organization consisting of ambulatory clinics and hospital sitesin [place], [place], [place] and [place]. This disclosure is being madepursuant to the Care Everywhere program and may not contain all information available regarding this patient. Last updated 17.[facility] Allergies No known active allergies Medications * [...] e sinusitis, recurrence not specified, unspecified location [place] 2 sprays into each nostril once daily 1 bottles 01/24/2017 Active Social History Tobacco Use Types Packs/Day Years Used Date Smoking Tobacco: Never Assessed Sex and Gender Information Value Date Recorded Sex Assigned at Not on file Gender Identity Not on file Sexual Orientation Not on file Last Filed Vital Signs Vital Sign Reading Time Taken Comments Blood Pressure 118/70 01/24/2017 11:41 AM PAEDIATRIC PHYSIOTHERAPIST Pulse 88 01/24/2017 11:41 AM PAEDIATRIC PHYSIOTHERAPIST Temperature 37.3 C (99.1 F) 01/24/2017 11:41 AM PAEDIATRIC PHYSIOTHERAPIST Respiratory Rate 17 01/24/2017 11:41 AM PAEDIATRIC PHYSIOTHERAPIST Oxygen Saturation 99% 01/24/2017 11:41 AM PAEDIATRIC PHYSIOTHERAPIST Inhaled Oxygen Concentration - - Weight 49.9 kg (110 lb) 01/24/2017 11:41 AM PAEDIATRIC PHYSIOTHERAPIST Height 160 cm (5' 3 ) 01/24/2017 11:41 AM PAEDIATRIC PHYSIOTHERAPIST Body Mass Index 19.49 01/24/2017 11:41 AM PAEDIATRIC PHYSIOTHERAPIST Plan of Treatment Not on file Care Teams Gas Furnace Installer Relationship Specialty Start Date End Date Emmy Dallas MD PCP - General Family Medicine 03/24/16
[2024-05-02] MEDS: SODIUM CHLORIDE 0.9% IV 50 ML 999 ML (19:20)
--- NOTE | 2024-05-02 19:20 | PC.NURSE ---
50mL bag NS started by SPIKE Burgess with TXA.
[2024-05-02 19:21] VITALS: PULSE 81; RESP 20; O2SAT 100
[2024-05-02] MEDS: medroxyPROGESTERone ACETATE 10 MG TABLET PO (19:49)
== END 2024-05-02 19:53 | disposition home or self-care (01) ==
PROVIDERS: Emergency Provider Emergency Medicine
DX: N93.9 Abnormal uterine and vaginal bleeding, unspecified (principal); F17.210 Nicotine dependence, cigarettes, uncomplicated
CPT/HCPCS: 36415; 76830; 80048; 85025; 85610; 85730; 86850; 86900; 86901; 96361; 96374; 96375; 99284; A9270; J2405; J7030

== ENCOUNTER 2024-05-31 17:07 | Outpatient (CLI) | payer OTHER, SELFPAY ==
--- OUTSIDE RECORDS SUMMARY | 2024-05-31 17:39 | XMS_ITS | Referral Summary ---
Author Organization [facility] [employer] Address [address] [place] [address] Care Team Providers Care Reprint Sorter Name Role Phone Emmy Dallas MD Primary Care Provider [phone] Source Comments [facility] [employer],non-owned Affiliates and Associated Physician Practices is amultiple site organization consisting of ambulatory clinics and hospital sitesin [place], [place], [place] and [place]. This disclosure is being madepursuant to the Care Everywhere program and may not contain all information available regarding this patient. Last updated 17.[facility] [employer] Allergies No known active allergies Medications * [...] e sinusitis, recurrence not specified, unspecified location [place] 2 sprays into each nostril once daily 1 bottles 01/24/2017 Active Social History Tobacco Use Types Packs/Day Years Used Date Smoking Tobacco: Never Assessed Sex and Gender Information Value Date Recorded Sex Assigned at Not on file Gender Identity Not on file Sexual Orientation Not on file Last Filed Vital Signs Vital Sign Reading Time Taken Comments Blood Pressure 118/70 01/24/2017 11:41 AM HYDRO GENERATION SUPERVISOR Pulse 88 01/24/2017 11:41 AM HYDRO GENERATION SUPERVISOR Temperature 37.3 C (99.1 F) 01/24/2017 11:41 AM HYDRO GENERATION SUPERVISOR Respiratory Rate 17 01/24/2017 11:41 AM HYDRO GENERATION SUPERVISOR Oxygen Saturation 99% 01/24/2017 11:41 AM HYDRO GENERATION SUPERVISOR Inhaled Oxygen Concentration - - Weight 49.9 kg (110 lb) 01/24/2017 11:41 AM HYDRO GENERATION SUPERVISOR Height 160 cm (5' 3 ) 01/24/2017 11:41 AM HYDRO GENERATION SUPERVISOR Body Mass Index 19.49 01/24/2017 11:41 AM HYDRO GENERATION SUPERVISOR Plan of Treatment Not on file Care Teams Reprint Sorter Relationship Specialty Start Date End Date Emmy Dallas MD PCP - General Family Medicine 03/24/16
--- OUTSIDE RECORDS SUMMARY | 2024-05-31 17:39 | XMS_ITS | Patient Health Summary ---
Author Organization [facility] Address [address] [place] [address] Care Team Providers Care Field Service Specialist Name Role Phone Emmy Dallas MD Primary Care Provider [phone] Note from [facility],non-owned Affiliates and Associated Physician Practices is amultiple site organization consisting of ambulatory clinics and hospital sitesin [place], [place], [place] and [place]. This disclosure is being madepursuant to the Care Everywhere program and may not contain all information available regarding this patient. Last updated 17.[facility] Allergies No known active allergies Medications * [...] propionate (FLONASE) 50 MCG/ACT nasal spray(Started 01/24/2017) [place] 2 sprays into each nostril once daily Social History Tobacco Use Types Packs/Day Years Used Date Smoking Tobacco: Never Assessed Sex and Gender Information Value Date Recorded Sex Assigned at Not on file Gender Identity Not on file Sexual Orientation Not on file Last Filed Vital Signs Vital Sign Reading Time Taken Comments Blood Pressure 118/70 01/24/2017 11:41 AM AWNING INSTALLER Pulse 88 01/24/2017 11:41 AM AWNING INSTALLER Temperature 37.3 C (99.1 F) 01/24/2017 11:41 AM AWNING INSTALLER Respiratory Rate 17 01/24/2017 11:41 AM AWNING INSTALLER Oxygen Saturation 99% 01/24/2017 11:41 AM AWNING INSTALLER Inhaled Oxygen Concentration - - Weight 49.9 kg (110 lb) 01/24/2017 11:41 AM AWNING INSTALLER Height 160 cm (5' 3 ) 01/24/2017 11:41 AM AWNING INSTALLER Body Mass Index 19.49 01/24/2017 11:41 AM AWNING INSTALLER Care Teams Field Service Specialist Relationship Specialty Start Date End Date Emmy Dallas MD PCP - General Family Medicine 03/24/16
--- OUTSIDE RECORDS SUMMARY | 2024-05-31 17:39 | XMS_ITS | Clinical Summary ---
Author Organization [facility] [employer] Address [address] [place] [address] Care Team Providers Care Fuel Truck Driver Name Role Phone Emmy Dallas MD Primary Care Provider [phone] Source Comments [facility] [employer],non-owned Affiliates and Associated Physician Practices is amultiple site organization consisting of ambulatory clinics and hospital sitesin [place], [place], [place] and [place]. This disclosure is being madepursuant to the Care Everywhere program and may not contain all information available regarding this patient. Last updated 17.[facility] Allergies No known active allergies Medications * [...] e sinusitis, recurrence not specified, unspecified location [place] 2 sprays into each nostril once daily 1 bottles 01/24/2017 Active Social History Tobacco Use Types Packs/Day Years Used Date Smoking Tobacco: Never Assessed Sex and Gender Information Value Date Recorded Sex Assigned at Not on file Gender Identity Not on file Sexual Orientation Not on file Last Filed Vital Signs Vital Sign Reading Time Taken Comments Blood Pressure 118/70 01/24/2017 11:41 AM CEMENT STORAGE WORKER Pulse 88 01/24/2017 11:41 AM CEMENT STORAGE WORKER Temperature 37.3 C (99.1 F) 01/24/2017 11:41 AM CEMENT STORAGE WORKER Respiratory Rate 17 01/24/2017 11:41 AM CEMENT STORAGE WORKER Oxygen Saturation 99% 01/24/2017 11:41 AM CEMENT STORAGE WORKER Inhaled Oxygen Concentration - - Weight 49.9 kg (110 lb) 01/24/2017 11:41 AM CEMENT STORAGE WORKER Height 160 cm (5' 3 ) 01/24/2017 11:41 AM CEMENT STORAGE WORKER Body Mass Index 19.49 01/24/2017 11:41 AM CEMENT STORAGE WORKER Plan of Treatment Health Maintenance Due Date [...] to complete this topic MENINGOCOCCAL (Group B) VACC INE SHARED DECISION-MAKING Aged Out No longer eligibl e based on patient's age to complete this topic MENINGOCOCCAL GROUPS A/C/Y/W VACCINE Aged Out No longer eligible b ased on patient's age to complete this topic PNEUMOCOCCAL VACCINE Aged Out No long er eligible based on patient's age to complete this topic Care Teams Fuel Truck Driver Relationship Specialty Start Date End Date Emmy Dallas MD PCP - General Family Medicine 03/24/16
[2024-05-31 17:47] LABS: Beta HCG Quantitative < 2.39 mIU/ML
== END 2024-05-31 17:08 | disposition home or self-care (01) ==
PROVIDERS: Visit Provider Obstetrics & Gynecology
DX: N93.9 Abnormal uterine and vaginal bleeding, unspecified (principal)
CPT/HCPCS: 36415; 84702

== ENCOUNTER 2024-08-22 15:24 | Outpatient (CLI) | payer OTHER, SELFPAY ==
--- OUTSIDE RECORDS SUMMARY | 2024-08-22 15:31 | XMS_ITS | Clinical Summary ---
Author Organization [facility] [employer] Address [address] [place] [address] Care Team Providers Care Double Head Machine Operator Name Role Phone Emmy Dallas MD Primary Care Provider [phone] Source Comments [facility] [employer],non-owned Affiliates and Associated Physician Practices is amultiple site organization consisting of ambulatory clinics and hospital sitesin [place], [place], [place] and [place]. This disclosure is being madepursuant to the Care Everywhere program and may not contain all information available regarding this patient. Last updated 17.[facility] [employer] Allergies No known active allergies Medications * Be aware that medications may not be up to date on this document. Alwaysverify current medications with the patient. acyclovir (ZOVIRAX) 200 MG capsule Take 200 mg by mouth 5 times daily while awake Active albuterol HFA (VENTOLIN HFA) 108 (90 BASE) MCG/ACT inhalerIndicatio ns:Acute bronchitis, unspecified organism Inhale 2 puffs by mouth every 6 hours as needed for Wheezing or Cough 1 Inhaler 7 Active fluticasone propionate (FLONASE) 50 MCG/ACT nasal sprayIndications :Acute sinusitis, recurrence not specified, unspecified location [place] 2 sprays into each nostril once daily 1 bottles 7 Active Social History Tobacco Use Types Packs/Day Years Used Date Smoking Tobacco: Never Assessed Comments Unknown Sex and Gender Information Value Date Recorded Sex Assigned at Not on file Legal Sex Female 5:07 AM TICKET COUNTER Gender Identity Not on file Sexual Orientation Not on file Last Filed Vital Signs Vital Sign Reading Time Taken Comments Blood Pressure 118/70 01/24/2017 11:41 AM TICKET COUNTER Pulse 88 01/24/2017 11:41 AM TICKET COUNTER Temperature 37.3 C (99.1 F) 01/24/2017 11:41 AM TICKET COUNTER Respiratory Rate 17 01/24/2017 11:41 AM TICKET COUNTER Oxygen Saturation 99% 01/24/2017 11:41 AM TICKET COUNTER Inhaled Oxygen Concentration - - Weight 49.9 kg (110 lb) 01/24/2017 11:41 AM TICKET COUNTER Height 160 cm (5' 3) 01/24/2017 11:41 AM TICKET COUNTER Body Mass Index 19.49 01/24/2017 11:41 AM TICKET COUNTER Plan of Treatment Health Maintenance Due Date Last Done Comments COLOGUARD (AGES 45-75) - COL ON CA SCREENING 1976 COLON MONITORING 1976 COLONOSCOPY - COLON CA SCREENING 1976 CT COLONOGRAPHY - COLON CA SCREENING 1976 Colorectal Cancer Screening 1976 FIT - COLON CA SCREENING 1976 FLEX SIG - COLON CA SCREENING 1976 LIPID TESTING 1976 MAMMOGRAM 1976 HIV SCREENING 10/10/1991 HEPATITIS C SCREENING 10/05/1994 DTAP/TDAP/TD VACCINES (1 - Tdap) 10/10/1995 HEPATITIS B VACCINE (1 of 3 - 19+ 3-dose series) 10/10/1995 COVID-19 VACCINE (1 - 2023-2 5 season) 2023 DEPRESSION SCREENING 03/21/2024 INFLUENZA VACCINE (Season Ended) 2024 ZOSTER VACCINE (1 of 2) 2026 HIB [...] on patient's age to complete this topic Insurance [employer] Care Teams Double Head Machine Operator Relationship Specialty Start Date End Date Emmy Dallas MD PCP - General Family Medicine 03/24/16
[2024-08-22 16:04] LABS: Hematocrit 46.1 % (37.0-47.0); Hemoglobin 14.9 g/dL (12.0-15.0)
== END 2024-08-22 15:25 | disposition home or self-care (01) ==
LOC: ANHSURGERY 15:29
PROVIDERS: Anesthesiology; Visit Provider Obstetrics & Gynecology
DX: N92.0 Excessive and frequent menstruation with regular cycle (principal)
CPT/HCPCS: 36415; 85014; 85018; 86850; 86900; 86901

== ENCOUNTER 2024-08-27 01:24 | Day surgery (SDC) | payer OTHER, SELFPAY ==
[2024-08-20 14:56] VITALS: BMI 19.5
--- NOTE | 2024-08-20 15:03 | PC.NURSE ---
Report to the Outpatient Waiting Room, entrance under the green pavilion located off [facility], at time _0600_ on date _[id number]_. Planned Procedure Time: _0730_.? Time changes happen often and if your time is changed the preop area will call you the afternoon before. - You and your visitor will be asked to self-screen and do not enter if you have any COVID symptoms. Please call surgeon if you need to reschedule. - A mask is optional within the hospital at this time. Patients may have clear liquids (water, carbonated beverages, clear teas, apple juice) until 3 hours prior to surgery with a maximum of 20 ounces. - No food from midnight until time of surgery and no smoking, or chewing tobacco (or any form of nicotine). No chewing gum, candy or mints. Take only the following medications with a SIP of water on the morning of surgery: ___None____ DO NOT STOP ANY OF YOUR OTHER PRESCRIPTION MEDICATIONS PRIOR TO SURGERY EXCEPT THE FOLLOWING Hold all vitamins and supplements for 3 days per anesthesiologist. Medications to discontinue per physician Date to take last dose Please no make-up, nail andorran, hairspray, perfume, deodorant, or body powder the day of surgery.? No jewelry (including any body piercings) or valuables the day of surgery, leave them at home.? Please take a shower or bath the night before, or the morning of, surgery with an antibacterial soap.? Wear comfortable, loose fitting clothing.? - Jewelry must be removed prior to entering the operating room.? Rings and piercings that are not removed may be cut off. - The hospital will not accept responsibility for valuables.? - Please leave all valuables, including medications, at home the day of surgery. If you are going home after surgery, a licensed owner operator tanker truck driver must drive you home.? - NO public transportation without another adult if you receive anesthesia. - We recommend that an adult stay with you for 24 hours following discharge. - We also recommend that you do not drive, make important decision, drink alcoholic beverages, or take any drugs that were not prescribed by your health care provider for at least 24 hours after your discharge time. Follow any additional instructions given to you from your surgeon. Telephone instructions given to __Kim___and asked if any additional questions and then verbalized understanding. Patient advised to call surgeon office or pre surgery nurse liaison [phone] if any additional questions.
[2024-08-27] VITALS (13 sets, daily range): BP systolic 119–147; BP diastolic 62–91; PULSE 56–88; RESP 13–18; TEMP 36.1–37.3; O2SAT 95–100
--- OUTSIDE RECORDS SUMMARY | 2024-08-27 01:27 | XMS_ITS | Clinical Summary ---
Author Organization [facility] Address [address] [place] [address] Care Team Providers Care Veterans Rehabilitation Counselor Name Role Phone Emmy Dallas MD Primary Care Provider [phone] Source Comments [facility] [employer],non-owned Affiliates and Associated Physician Practices is amultiple site organization consisting of ambulatory clinics and hospital sitesin [place], [place], [place] and [place]. This disclosure is being madepursuant to the Care Everywhere program and may not contain all information available regarding this patient. Last updated 17.[facility] [employer] Allergies No known active allergies Medications * [...] :Acute sinusitis, recurrence not specified, unspecified location [place] 2 sprays into each nostril once daily 1 bottles 7 Active Social History Tobacco Use Types Packs/Day Years Used Date Smoking Tobacco: Never Assessed Comments Unknown Sex and Gender Information Value Date Recorded Sex Assigned at Not on file Legal Sex Female 5:07 AM EVENING ANCHOR Gender Identity Not on file Sexual Orientation Not on file Last Filed Vital Signs Vital Sign Reading Time Taken Comments Blood Pressure 118/70 01/24/2017 11:41 AM EVENING ANCHOR Pulse 88 01/24/2017 11:41 AM EVENING ANCHOR Temperature 37.3 C (99.1 F) 01/24/2017 11:41 AM EVENING ANCHOR Respiratory Rate 17 01/24/2017 11:41 AM EVENING ANCHOR Oxygen Saturation 99% 01/24/2017 11:41 AM EVENING ANCHOR Inhaled Oxygen Concentration - - Weight 49.9 kg (110 lb) 01/24/2017 11:41 AM EVENING ANCHOR Height 160 cm (5' 3) 01/24/2017 11:41 AM EVENING ANCHOR Body Mass Index 19.49 01/24/2017 11:41 AM EVENING ANCHOR Plan of Treatment Health Maintenance Due Date [...] complete this topic Insurance [employer] Care Teams Veterans Rehabilitation Counselor Relationship Specialty Start Date End Date Emmy Dallas MD PCP - General Family Medicine 03/24/16
[2024-08-27] MEDS: ACETAMINOPHEN 500 MG TABLET 1000 MG PO ×4 (06:30→23:38)
[2024-08-27] MEDS: LACTATED RINGERS 1,000 ML 30 ML IV CONT ×2 (06:35→09:07)
[2024-08-27] MEDS: KETOROLAC 15 MG/ML VIAL (*BKC) IV PUSH (06:38)
--- NOTE | 2024-08-27 06:55 | P.PNAN_ITS ---
Anes - Initial Pre Proc Eval Procedure: Operation Date: 08/27/24 07:30 Proposed Procedures p Robotic Assisted Total Laparoscopic Hysterectomy with Bilateral Salpingectomy, Cystoscopy - Marianela Graham MD Date/Time: 08/27/24 06:55 Surgeon: Marianela Graham MD Pre Op Diagnosis: abnormal uterine bleeding Patient Data Age: 48 Gender: F Height: 1.6 m Weight: 50.7 kg Last Vital Signs Temp 36.9 C 08/27/24 06:15 Pulse 88 08/27/24 06:15 Resp 16 08/27/24 06:15 BP 144/91 H 08/27/24 06:15 Pulse Ox 99 08/27/24 06:15 O2 Del Method Room Air 08/27/24 06:15 Allergies Allergy/AdvReac Type Severity Reaction Status Date / Time sulfamethizole Allergy Intermediate nausea and Verified 08/27/24 06:48 hives azithromycin Allergy Unknown abd pain Verified 08/27/24 06:48 trimethoprim Allergy Unknown Diarrhea Verified 08/27/24 06:48 Home Medications ?Medication ?Instructions ?Recorded ?Confirmed ?Type valacyclovir 500 mg tablet 500 mg PO Q12H PRN cold sores 12/07/23 08/20/24 History levonorgestrel (Mirena) 1 device intrauterine ONCE 06/01/24 08/20/24 History Patient hx anesthesia problems: none Family hx anesthesia problems: none Results Review: All pre-operative results and documents have been reviewed as part of the pre- operative evaluation. [facility] Past Medical History Medical History Breast mass, right Surgical History Surgical History H/O colposcopy with cervical biopsy 02/21/2020 History of gynecological procedure Mirena Iud insertion - 2007 Mirena Iud removal - 07/17/2012 Family History Family History Sibling Hypertension Mother Family history of malignant neoplasm of ovary Social History Social History Smoking packs per day: 0.5 Smoking cigarettes per day: 10.0 Years smoked: 20 Smoking pack-years: 10.00 Smoking status: Current every day smoker Tobacco type: cigarettes Second hand tobacco smoke exposure: Yes Alcohol intake: current Alcohol use details: rare Substance use: never Substance use type: does not use Current Housing: Decline to Answer Concerned About Future Housing: Decline to Answer Difficulty Paying Gas/Electric Bills: Decline to Answer Difficulty Paying for Meds: Decline to Answer Currently Unemployed: Decline to Answer Education: Decline to Answer Difficulty w/ Childcare or Family Care: Decline to Answer Living arrangements: with family Occupation/Education: occupation Gender identity (if verbalized by the patient): Female Sexual Orientation (if Verbalized by the Patient): Straight or Heterosexual Spiritual care concerns: No Anes - Eval Final PreProcedure Day of Procedure 08/27/24 06:55 Patient weight: thin Heart: regular rate and rhythm Lungs: clear to auscultation Airway: Mallampati scale class III Neurological: alert and oriented Last oral intake: >/= 8 hours ASA classification: II Emergent: no Anesthetic plan: proceed Anesthesia type and monitoring: general ETT and standard monitoring Results Review: All pre-operative results and documents have been reviewed as part of the pre- operative evaluation. Informed Consent: The patient's anesthetic plan and its attendant risks and benefits were discussed with the patient/family/POA. Questions were solicited and answers provided to the satisfaction of the patient/family/POA.
[2024-08-27] MEDS: SCOPOLAMINE 1 MG PATCH 1 PATCH TRANSDERM (06:59)
[2024-08-27 07:00] LABS: BEDSIDEPREGUCG Negative (Negative)
--- NOTE | 2024-08-27 07:04 | WPDHPUPDATE1 ---
History and Physical Update Update Date/Time: 08/27/24 07:04 History and Physical has been reviewed, including an updated exam of the patient. There are NO changes in the patient's condition. Risks, benefits, and alternatives have been discussed and questions answered. Patient agrees to proceed with robotic assisted total laparoscopic hysterectomy with bilateral salpingo-oophorectomy and cystoscopy.
[2024-08-27] MEDS: metroNIDAZOLE 500 MG/ISO 100ML 500 MG/100 ML BAG 100 MG IVPB (07:27)
[2024-08-27] MEDS: ceFAZolin 2 GM/D5W 50 ML 2 GM/50 ML BAG IVPB (07:27)
[2024-08-27] MEDS: BUPIVACAINE/EPINEPHRINE 0.5% 50 ML VIAL 20 ML INFILTRATE (08:04)
--- NOTE | 2024-08-27 08:33 | S_PTH ---
PATIENT: Thuy Scruggs LOC: [facility] U#:[id number] AGE/SX: 48/F ROOM: RE08/27/[address]: Marianela Graham MD : 1975 BED: DIS: 08/28/2024 SPEC #: [id number] RECD: 08/27/24 10:32 STATUS: MARIO REQ #: [id number] MARY: 08/27/24 08:[address]: Marianela Graham DEPT: [facility] Surgical RECD BY: Yola García ENTERED: 08/27/24 10:32 SP TYPE: Surgical OTHR DR: LATH TIER PHYSICIAN Tissues: A - Uterus Procedures: Hematoxylin and Eosin Stain WT Gross and Microscopic Level 5 Calretinin
--- NOTE | 2024-08-27 09:00 | P.OP_ITS ---
Procedure Note - Detailed Date of Procedure 08/27/24 Pre-op Diagnosis abnormal uterine bleeding Post-op Diagnosis Same Procedure Performed Robotic assisted total laparoscopic hysterectomy with bilateral salpingo- oophorectomy Surgeon Marianela Graham MD Anesthesia General and Local (17cc of 0.5% marcaine w/ epi) Findings Uterus sounded to 7cm, cervix 3.5cm. Normal appearing uterus, cervix, fallopian tubes and ovaries. Normal bladder without defects/masses, bilateral ureteral efflux noted. Good hemostasis at end of case. Description of Procedure Thuy was taken to the operating room where she was placed under general anesthesia without issues. She received 2 g Ancef and 500mg Metronidazole. She was then prepped and draped in the usual sterile fashion in the dorsal lithotomy position with her legs in low Endy stirrups, her arms tucked at her side, with a strap over her chest. A time-out was performed. My attention was turned down below where a nicholas catheter was placed. A bivalve speculum was placed within the vagina. The cervix was easily identified and the anterior lip of the cervix was grasped with single-tooth tenaculum. The uterus was then sounded to 7cm. The cervix was serially dilated to allow for the ARMANI uterine manipulator; which was placed w/o issue (6cm tip with 3.5cm cervical ring). My gloves were changed and attention was then turned to the abdomen. A 5 mm trocar was placed under direct visualization at Klein's point without issue. Once intra-abdominal placement was confirmed, the abdomen was insufflated with carbon dioxide gas. An abdominal survey was performed and the above findings were noted. Two additional ports were placed on the right and left side and the camera port was placed supraumbilical under direct visualization without issues. The 5mm port was switched out for the accessory port under direct visualization. The patient was then placed in deep Trendelenburg, with the legs slightly lowered. The robot was then docked. The instruments were placed intra- abdominally under direct visualization. I then un-scrubbed and went to the robotic console. I then started my hysterectomy on the right side. The ureter was easily identified transperitoneally and well out of the surgical field. The IP ligament was identified and serially clamped, coagulated, and transected with good hemostasis. The broad ligament was then sequentially clamped, coagulated, and transected working in the direction of the round ligament. The round ligament was clamped, coagulated, and transected. The broad ligament was then further dissected anteriorly and posteriorly skeletonizing the uterine artery. The bladder flap was then developed on the right side and carried around to the left side, anteriorly. The small adhesions from the pelvic side wall to the colon were taken down using the mono-polar scissors without complications. The ureter was easily identified transperitoneally and well out of the surgical field. The IP ligament was identified and serially clamped, coagulated, and transected with good hemostasis. The broad ligament was then sequentially clamped, coagulated, and transected working in the direction of the round ligament. The round ligament was clamped, coagulated, and transected. The broad ligament was then further dissected anteriorly and posteriorly skeletonizing the uterine artery. The uterine arteries were then serially clamped and coagulated. Once the vessel was adequately coagulated, it was then transected with good hemostasis. The uterus was noted to be devascularized. The bladder flap was verified out of the surgical field and the colpotomy was started anteriorly and continued in a clockwise fashion until the uterus was released. The uterus was removed from the abdomen via the vagina without complications. The vaginal cuff had small bleeders that were made hemostatic without complications. The vaginal cuff was then reapproximated using a 0 V lock suture. The pelvis was then irrigated and suctioned free of all clots and debris. Good hemostasis was noted. All instruments were removed from the abdomen and the robot was undocked. I then scrubbed back in and verified that the cuff was intact without any defects. The Nicholas catheter was then removed. The cystoscope was placed within the bladder, which filled without difficulty. Bilateral ureteral efflux was noted. The bladder was examined and no defects or abnormalities were visualized. The bladder was drained. The cystoscope was removed. The nicholas catheter was replaced under aseptic technique. The 4 laparoscopic incisions were reapproximated using 4-0 Monocryl and covered with Dermabond. The laparoscopic incisions were infiltrated with local anesthesia for better pain control. Sponge, lap, instrument, and needle counts were correct at the end the procedure. Patient was awoken from general anesthesia and taken to recovery in a stable conditions with plans of overnight stay. Estimated Blood Loss 50 IV Fluids 1,000 Urine Output 100 Drains No Packing No Pathology Yes (uterus, cervix and bilateral ovaries/tubes) Complications No immediate complications Condition Stable Disposition Observation [facility] Billing Surgery - Charge Forward: Surgery Billing
[2024-08-27] MEDS: ONDANSETRON INJ 4 MG/2 ML VIAL IV PUSH (09:29)
[2024-08-27] MEDS: fentaNYL CITRATE INJ (*CRX) 100 MCG/2 ML VIAL 25 MCG IV PUSH ×2 (09:43→09:51)
[2024-08-27] MEDS: ESTRADIOL 7 DAY 0.05 MG PATCH TRANSDERM (11:09)
[2024-08-27] MEDS: DOCUSATE SODIUM 100 MG CAPSULE PO ×2 (11:09→17:35)
[2024-08-27] MEDS: DEXTROSE 5%/LACTATED RINGERS 1,000 ML 125 ML IV CONT (11:10)
--- NOTE | 2024-08-27 11:11 | SUR.PHASEI ---
1035 RED LINEAR FULTON NOTED TO LEFT NECK EN ROUTE TO OB UNIT; PATIENT DENIES ITCHINESS; SKIN NOT BROKEN; TECH STATED THEY WOULD MONITOR IT.
[2024-08-27] MEDS: SIMETHICONE 80 MG TAB.CHEW PO ×2 (11:58→17:35)
[2024-08-27] MEDS: KETOROLAC 30 MG/ML VIAL (*BKC) IV PUSH ×3 (11:59→23:38)
[2024-08-28 03:35] VITALS: BP 105/70; PULSE 62; RESP 16; TEMP 36.8; O2SAT 98
[2024-08-28 03:43] LABS: Basophils Absolute Auto 0.1 K/mm3 (0.0-0.1); Basophils Percent Auto 0.3 % (0.2-1.2); Eosinophils Percent Auto 0.1 % (0-4.4); Hematocrit 40.7 % (37.0-47.0); Hemoglobin 13.4 g/dL (12.0-15.0); Immature Granulocyte Absolute 0.08 K/mm3 (0.00-0.031); Immature Granulocyte Percent A 0.4 % (0-0.5); Lymphocytes Absolute Auto 2.04 K/mm3 (0.9-3.2); Lymphocytes Percent Auto 11.4 % (18.3-44.2); Mean Corpuscular HGB Conc 32.9 g/dl (32-36); Mean Corpuscular Hemoglobin 30.5 pg (26-34); Mean Corpuscular Volume 92.5 fl (80-100); Mean Platelet Volume 10.6 fl (7.4-10.4); Monocytes Absolute Auto 1.3 K/mm3 (0.1-0.6); Monocytes Percent Auto 7.4 % (2.6-8.5); Neutrophils Absolute Auto 14.4 K/mm3 (1.3-6.7); Neutrophils Percent Auto 80.4 % (45.5-73.1); Platelet Count Result 252 k/mm3 (150-375); Red Cell Distribution Width 13.3 % (11.5-14.5); White Blood Count 17.9 K/mm3 (4.5-10.0)
[2024-08-28 03:53] LABS: Anion Gap 4 mmol/L (4-12); Blood Urea Nitrogen 9 mg/dL (7-17); Calcium 8.9 mg/dL (8.4-10.2); Carbon Dioxide 26 mmol/L (22-30); Chloride 108 mmol/L (98-107); Estimated CRCL calculation 63 ml/min; Estimated Glomerular Filt Rate > 60; Glucose 107 mg/dL (65-110); Sodium 138 mmol/L (137-145)
[2024-08-28] MEDS: ACETAMINOPHEN 500 MG TABLET 1000 MG PO (05:38)
[2024-08-28] MEDS: IBUPROFEN 600 MG TABLET PO (05:38)
--- NOTE | 2024-08-28 07:08 | PM.GYNPNOP ---
PATIENT ADMITTING CLERK - A/P Assessment and plan (1) S/P laparoscopic hysterectomy: Code(s): Z90.710 - Acquired absence of both cervix and uterus Status: Acute Postoperative Procedures: Procedures Operation Date: 08/27/24 07:30 Actual Procedure Side Surgeon p Robotic Assisted Total Laparoscopic Hysterectomy with Bilateral Salpingectomy, Cystoscopy Bilateral Marianela Graham MD Postoperative day: 1 Postoperative status: doing well Postoperative plan: routine post-op care, discharge and other (will give oxycodone) Time Spent With Patient Time: Total time spent is greater than 50% in coordination of care (as documented) at patient's floor/unit and/or counseling patient: Time with patient: less than 15 minutes PATIENT ADMITTING CLERK- PN:Subj Post-Op Subjective Date/time seen: 08/28/24 07:08 Interval history: POD#1 Thuy reports doing well today. No issues overnight. Her pain is not fully controlled but has not taken the oxycodone yet. She has tolerated regular diet. She denies any vaginal bleeding. She has voided. She has not passed flatus. She has ambulated and denies any symptoms of anemia. Review of Systems Review of Systems: All systems reviewed & are unremarkable except as noted in HPI and below (HPI) Constitutional: Constitutional: Denies chills, Denies fever(s) and Denies headache(s) Eyes: Eyes: Denies change in vision ENT: Denies dizziness and Denies headache(s) Cardiovascular: Cardiovascular: Denies chest pain and Denies rapid heart rate Respiratory: Respiratory: Denies cough Genitourinary: Genitourinary: Denies abnormal vaginal bleeding Neurologic: Denies dizziness and Denies headache(s) Exam Const: General: cooperative, healthy appearing, comfortable and no acute distress Orientation/consciousness: patient oriented x3 Resp: Effort & Inspection: normal respiratory effort Auscultation: clear to auscultation bilaterally Cardio: Rate: regular rate GI: Inspection: normal to inspection and incision ( LSC incisions c/d/i) GI Palp: Yes abdominal tenderness (appropriate) and Yes Soft to palpation Auscultation: normal bowel sounds : Other: normal bleeding on pad Skin: General skin exam: normal color Neuro: General: patient oriented x3 Psych: Appearance: grossly normal Affect: normal affect Attitude: cooperative PATIENT ADMITTING CLERK - PN: Obj Data Vital Signs Vital Signs: Vital Signs - 24 hr 08/27/24 06:15 08/27/24 09:07 08/27/24 09:20 Temperature 98.5 F 97 F L Pulse Rate 88 83 69 Respiratory Rate 16 18 17 Blood Pressure 144/91 H 147/63 H 139/85 Pulse Oximetry 99 100 100 Oxygen Delivery Room Air Simple Face Mask Simple Face Mask Oxygen Flow Rate 8 8 08/27/24 09:35 08/27/24 09:50 08/27/24 10:05 Temperature 97 F L Pulse Rate 80 78 81 Respiratory Rate 13 13 15 Blood Pressure 131/84 129/78 131/85 Pulse Oximetry 98 99 98 Oxygen Delivery Room Air Room Air Room Air Oxygen Flow Rate 08/27/24 10:20 08/27/24 10:45 08/27/24 11:00 Temperature 99.1 F Pulse Rate 61 84 84 Respiratory Rate 15 16 16 Blood Pressure 137/77 134/83 Pulse Oximetry 99 95 95 Oxygen Delivery Room Air Room Air Oxygen Flow Rate Intake/Output Intake/Output: Intake & Output 08/24/24 08/25/24 08/26/24 08/27/24 23:59 23:59 23:59 23:59 Intake Total 2900 Output Total 550 Balance 2350 Meds/Results Medications: Active Medications Generic Name Dose Route Start Last Admin Trade Name Freq PRN Reason Stop Dose Admin Acetaminophen 1,000 mg 08/27/24 12:00 08/27/24 12:00 Acetaminophen 500 Mg Tablet PO 1,000 mg Q6HR DEBORA Administration Docusate Sodium 100 mg 08/27/24 10:32 08/27/24 11:09 Docusate Sodium 100 Mg Capsule PO 100 mg BID DEBORA Administration Estradiol 0.05 mg 08/27/24 10:32 08/27/24 11:09 Estradiol 7 Day 0.05 Mg Patch TRANSDERM 0.05 mg WEEKLY DEBORA Administration Hydromorphone HCl 0.5 mg 08/27/24 10:32 Hydromorphone Hcl Inj (*Crx) 1 Mg/Ml Syr IV PUSH Q2H PRN Breakthrough Pain Rated 4-6 or NPO Dextrose/Lactated Ringer's 1,000 mls @ 125 mls/hr 08/27/24 10:32 08/27/24 11:10 Dextrose 5%/Lactated Ringers IV CONT 125 mls/hr .Q8H DEBORA Administration Ibuprofen 600 mg 08/28/24 06:00 Ibuprofen 600 Mg Tablet PO Q6HR DEBORA Ketorolac Tromethamine 30 mg 08/27/24 12:00 08/27/24 11:59 Ketorolac 30 Mg/Ml Vial (*Bkc) IV PUSH 08/28/24 00:01 30 mg Q6HR DEBORA Administration Naloxone HCl 0.1 mg 08/27/24 10:32 Naloxone Hcl 0.4 Mg/Ml Vial IV PUSH Q2M PRN Respiratory rate less than 10 Ondansetron HCl 4 mg 08/27/24 10:32 Ondansetron Inj 4 Mg/2 Ml Vial IV PUSH Q6H PRN Nausea And Vomiting Oxycodone HCl 5 mg 08/27/24 10:32 Oxycodone Hcl (*Crx) 5 Mg Tab Ir PO Q4H PRN Pain Rated 4-6 Oxycodone HCl 10 mg 08/27/24 10:32 Oxycodone Hcl (*Crx) 5 Mg Tab Ir PO Q6H PRN Pain Rated 7-10 Simethicone 80 mg 08/27/24 12:00 08/27/24 11:58 Simethicone 80 Mg Tab.Chew PO 80 mg TIDWM DEBORA Administration Labs 08/28/24 03:30 08/28/24 03:30 Labs: Laboratory Results - last 24 hr 08/27/24 06:58 POC Urine HCG, Qual Negative
[2024-08-28] MEDS: oxyCODONE HCL (*CRX) 5 MG TAB IR PO (07:29)
[2024-08-28] MEDS: SIMETHICONE 80 MG TAB.CHEW PO (07:30)
[2024-08-28] MEDS: DOCUSATE SODIUM 100 MG CAPSULE PO (07:30)
[2024-08-28 08:10] VITALS: BP 108/61; PULSE 70; RESP 18; TEMP 36.7; O2SAT 98
== END 2024-08-28 09:00 | disposition home or self-care (01) ==
LOC: ANHSURGERY 07:09 → ANHOB2 10:33
PROVIDERS: Visit Provider Obstetrics & Gynecology
PROC: (CPT 58571; principal; 2024-08-27 07:30)
DX: N93.9 Abnormal uterine and vaginal bleeding, unspecified (principal); N88.8 Other specified noninflammatory disorders of cervix uteri; N80.03 Adenomyosis of the uterus; D27.1 Benign neoplasm of left ovary; D27.0 Benign neoplasm of right ovary; N83.8 Other noninflammatory disorders of ovary, fallopian tube and broad ligament; F17.210 Nicotine dependence, cigarettes, uncomplicated
CPT/HCPCS: 58571; S2900; 36415; 80048; 85025; 88307; 88342; 99199; A9270; J0690; J1100; J1171; J1836; J1885; J2003; J2250; J2405; J2704; J3010; J7030; J7120; J7121

== ENCOUNTER 2024-09-13 15:12 | Outpatient (CLI) | payer OTHER, SELFPAY ==
[2024-09-13 16:19] LABS: Add Urine Microscopic? YES; Appearance Urine Clear (Clear); Bacteria Urine 1+ /hpf; Bilirubin Urine Negative (Negative); Blood Urine 1+ (Negative); Color Urine Yellow (Yellow); Glucose Urine UA Negative (Negative); Ketones Urine Negative (Negative); Leukocyte Esterase Ur 2+ LEU/UL (Negative); Need Manual Microscopic Reviewed; Nitrate Urine Negative (Negative); Non Pathogenic Casts 0-2; Protein Urine Negative (Negative); RBC Urine 0-2 /hpf (0-2); Specific Grav Ur 1.018 (1.001-1.035); Squamous Epithelial Cell Urine Few /hpf (Few); Urobilinogen Urine 0.2 mg/dL (<2.0); pH Urine 5.5 (5.0-9.0)
== END 2024-09-13 15:13 | disposition home or self-care (01) ==
LOC: ANHLAB 15:15
PROVIDERS: PCP Family Medicine; Visit Provider Obstetrics & Gynecology
DX: R39.15 Urgency of urination (principal)
CPT/HCPCS: 81001; 87086